=== PATIENT | female | born 1995 | race Two or more races ===

== ENCOUNTER 2025-03-24 18:46 | Emergency (ER) | payer OTHER ==
[~2025-03-24] VITALS: Ht 154.9 cm; Wt 83.9 kg
--- NOTE | 2025-03-24 18:56 | ECG ---
[facility] Test Date: 2025-03-24 Test Time: 18:55:01 Pat Name: PRIETO WILLS Department: ED Room: Gender: F Admitting Office Escort: BRISSA : 1995 Requested By: VIKKI DOAN Order Number: [id number] Reading MD: Brett Anthony Measurements Intervals [place] Rate: 60 P: 46 FL: 152 QRS: 57 QRSD: 90 T: 46 QT: 420 QTc: 420 Interpretive Statements Sinus arrhythmia Baseline wander in lead(s) V2 Electronically Signed On 03-27-2025 19:22:56 PST by Brett Anthoyn Please click the below link to view image of tracing.
[2025-03-24 19:12] LABS: Hematocrit 39.4 % (36.0-46.0); Hemoglobin 13.8 g/dL (12.2-16.2); Mean Corpuscular Hemoglobin 28.6 pg (28.0-32.0); Mean Corpuscular Volume 81.9 fL (80.0-100.0); Nucleated Red Blood Cells % 0.0 %
[2025-03-24 19:30] LABS: Chloride 105 mmol/L (98-107); Sodium 143 mmol/L (136-145)
[2025-03-24 19:31] LABS: Anion Gap 12 (5-15); Calcium 9.4 mg/dL (8.7-10.4); Carbon Dioxide 26 mmol/L (20-31)
[2025-03-24 19:36] LABS: BUN/Creatinine Ratio 13.8 (10.0-20.0); Potassium 3.3 mmol/L (3.5-5.1)
--- NOTE | 2025-03-24 20:18 | ED.PDOC ---
GI ASSESSMENT HPI Comments HPI: This is a 29 year old female presenting to the ED with chief complaint of abdominal pain. Patient reports that she has been experiencing epigastric abdominal pain with associated nausea and vomiting since 11am this morning. Patient relays that her pain radiates into her back. Patient states she is currently 30 days post and she has a family history of gallstones. Patient denies any fever, chills, chest pain, SOB, dysuria, hematemesis, or diarrhea. Past Medical History: Denies Past Surgical History: Denies Social History: Denies smoking, ETOH, or drug use Medications: None Allergies: NKDA ELMA: EPIG PAIN X 1 DAY, RUQ, N/V, RAD TO BACK. 30 DAYS HPI: Poor Historian. REVIEW OF SYSTEMS: CONSTITUTIONAL: Denies acute: fever, diaphoresis, chills, generalized weakness. HEAD: Denies acute: headache, photophobia Eyes: Denies acute: Double vision, vision loss, eye pain, eye discharge. EARS: Denies acute: tinnitus, hearing loss, ear discharge, ear pain, THROAT: Denies acute: sore throat, swelling, difficulty swallowing , pain with sw allowing, change in voice. NECK: Denies acute: neck pain, neck swelling, stiff neck. HEART: Denies acute : chest pain, palpitations, LUNGS: Denies acute: SOB, wheezing, cough, hemoptysis ABDOMEN: Denies acute: diarrhea, melena , hematemesis, hematochezia SKIN: Denies acute: rash, redness, lesions, itchiness. EXTREMITIES: Denies acute: calf pain, numbness, tingling, weakness, denies pain in extremity. Denies acute: Low back pain. Neuro: Denies acute: focal neurological deficit, motor or sensory focal neurological deficit, tremors, seizure like activity, confusion, dizziness, change in mental status, loss of bowel or bladder function, cauda equina like symptoms. : Denies acute: dysuria, hematuria, flank pain, increase in urinary frequency. PSYCH: Denies acute: hallucination, suicidal ideation, homicidal ideation. FEMALE: Denies acute: abnormal vaginal bleeding, foul odor, unusual discharge. PHYSICAL EXAM: General: ----moderate----acute distress, awake and alert. Head: normocephalic, atraumatic. No raccoon's eyes, no orellana sign. Neck: supple, trachea is midline, no swelling. Throat: Normal phonation. Eyes:, no erythema, no purulent discharge, no proptosis, no icterus. Heart: regular rate, regular rhythm, no significant murmur appreciated. Lungs: no apparent respiratory distress, Able to speak in full sentences. No wheezing, no rhonchi, no crackles. No stridors Clear to auscultation bilaterally. Abdomen: Epigastric tender to palpation, non distended, soft, no guarding, no rebound, + bowel sounds. Neuro: Awake, Alert, oriented to name, self, situation, follows commands GCS=15. Speech is normal. Skin: no petechia, no purpura, no cyanosis, non-pale, not jaundice. Lower extremities: --no - Pitting edema no deformity, no focal swelling, no calf TTP. Makes eye contact. moves all four extremities. Face: no apparent facial droop. Ambulating in the ED independently. ED COURSE: DISCLAIMER: This medical document was created using an electronic medical record system with voice recognition software and computerized dictation system. Although this document has been carefully reviewed, there might still be some phonetic and typographical errors. Occasional wrong-word or "sound-alike" substitutions may have occurred due to the inherent limitations of voice recognition software. These areas are purely typographical due to imperfections of the software programs and do not reflect any compromise in the patient's medical care. Please read the chart carefully and recognize, using context, where these substitutions have occurred. Chief Complaint: Chest Pain Time Seen by MD: 20:16 Reviewed Notes: Medications, Allergies Allergies: Coded Allergies: NO KNOWN ALLERGIES (Unverified , 03/24/25) Information Source: Patient Mode of Arrival: Ambulatory EKG EKG : Pulse Rate (adult): 60 Cardiac Rhythm: NSR Comments Sinus arrhythmia Was a procedure done? Was a procedure done?: No GI differential Dx Differential Diagnosis: Other (DDX include Diverticulitis, colitis, gastroenteritis, acute abdomen, SBO, enteritis, constipation, volvulus, appendicitis, Gallbladder disease, choledocolithiasis, ascending cholangitis, pancreatitis, intraAbdominal mass/neoplasm, hepatitis, UTI, pylonephritis, kidney stone, aneurysm, dissection, Inflammatory bowel disease, gastroparesis, ischemic bowel,,,,,,Food poisoning, bacterial/parasitic/viral etiology, trauma, diabetes DKA,ovarian torsion, ovarian cyst/mass, tubo-ovarian abscess, , ectopic , PID, STD.) X-Ray, Labs, Meds, VS Vital Signs Date Time Temp Pulse Resp B/P (MAP) Pulse Ox O2 Delivery O2 Flow Rate FiO2 03/25/25 02:28 98.5 46 14 131/61 (84) 95 98.5 03/25/25 01:54 98.3 44 16 119/45 (69) 100 98.3 03/25/25 01:12 130/78 03/24/25 22:10 57 03/24/25 22:00 66 17 131/81 (98) 98 03/24/25 21:58 131/81 03/24/25 20:42 60 16 96 Room Air* 0 21 03/24/25 20:42 99.2 60 16 114/69 (84) 96 99.2 03/24/25 20:18 60 03/24/25 18:55 60 03/24/25 18:53 98.1 76 18 107/68 94 98.1 Lab Test 03/24/25 23:14 03/24/25 20:45 03/24/25 20:30 03/24/25 19:00 Range/Units Sodium Level 145 143 136-145 mmol/L Potassium Level 3.7 3.3 L 3.5-5.1 mmol/L Chloride Level 107 105 98-107 mmol/L Carbon Dioxide Level 25 26 20-31 mmol/L Anion Gap 13 12 5-15 Blood Urea Nitrogen 8 L 9 9-23 mg/dL Creatinine 0.59 0.65 0.550-1.02 mg/dL Glomerular Filtration Rate Calc 125 122 >90 mL/min BUN/Creatinine Ratio 13.6 13.8 10.0-20.0 Serum Glucose 159 H 129 H 74-106 mg/dL Calcium Level 8.6 L 9.4 8.7-10.4 mg/dL Total Bilirubin 1.6 H 0.2-1.0 mg/dL Aspartate Amino Transferase (AST) 53 H 13-40 U/L Alanine Aminotransferase (ALT) 33 7-40 U/L Alkaline Phosphatase 114 46-116 U/L Total Protein 6.6 5.7-8.2 g/dL Albumin 4.2 3.2-4.8 g/dL Urine Color Yellow Yellow Urine Clarity Turbid H Clear Urine pH 5.5 5.0-9.0 Urine Specific [place] 1.020 1.001-1.035 Urine Protein Trace H Negative Urine Ketones 4+ H Negative Urine Blood Trace H Negative /uL Urine Nitrite Negative Negative Urine Bilirubin 1+ H Negative Urine Urobilinogen 2 H Negative mg/dL Urine Leukocyte Esterase 3+ Negative /uL Urine RBC 6 0 - 4 /hpf Urine Microscopic WBC 54 H 0-5 /HPF Urine Squamous Epithelial Cells Few <5 /hpf Urine Bacteria Few H None Seen /hpf Urine Mucus Few None Seen Urine Glucose Normal Normal mg/dL Urine Test Negative Negative Troponin I High Sensitivity < 3 L < 3 L </=34 ng/L White Blood Count 13.5 H 4.4-10.8 10^3/uL Red Blood Count 4.81 4.0-5.20 10^6/uL Hemoglobin 13.8 12.2-16.2 g/dL Hematocrit 39.4 36.0-46.0 % Mean Corpuscular Volume 81.9 80.0-100.0 fL Mean Corpuscular Hemoglobin 28.6 28.0-32.0 pg Mean Corpuscular Hemoglobin Concent 34.9 32.0-36.0 g/dL Red Cell Distribution Width 13.8 11.8-14.3 % Platelet Count 379 140-450 10^3/uL Mean Platelet Volume 6.5 L 6.9-10.8 fL Neutrophils (%) (Auto) 87.6 H 37.0-80.0 % Lymphocytes (%) (Auto) 7.6 L 10.0-50.0 % Monocytes (%) (Auto) 4.3 0.0-12.0 % Eosinophils (%) (Auto) 0.2 0.0-7.0 % Basophils (%) (Auto) 0.3 0.0-2.0 % Neutrophils # (Auto) 11.8 H 1.6-8.6 10 ^3/uL Lymphocytes # (Auto) 1.0 0.4-5.4 10 ^3/uL Monocytes # (Auto) 0.6 0-1.3 10 ^3/uL Eosinophils # (Auto) 0 0-0.8 10 ^3/uL Basophils # (Auto) 0 0-0.2 10 ^3/uL Nucleated Red Blood Cells 0.0 % Lipase > 3500 H 12-53 U/L [address] [address] Ph: [phone] DIAGNOSTIC IMAGING Diagnostic Imaging Report : [id number] Signed PATIENT: PRIETO WILLSACCT: [id number] UNIT: [id number] : 1995 LOC: ER ROOM / BED: / AGE / SEX: 29 / F ADM STATUS: REG ER SERVICE 44 ORDERING PHYSICIAN: VIKKI DOAN DO PROCEDURE(s): ABDL - ABDOMEN LIMITED REASON: EPGI PAIN N/V ORDER NUMBER(s): [id number], ACCESSION NUMBER(s): [id number] Procedure: US ABDOMEN LIMITED Study Date and Requested Time: 03/24/2025 07:54 PM History: EPGI PAIN N/V Comparison: None Technique: Multiple high resolution bryant-scale images obtained of the right upper quadrant of the abdomen with color Doppler for evaluation of blood flow and vascularity as indicated. Findings: Liver normal in size, measuring 17 cm in length, with homogenous echotexture and normal contours. No evidence of focal hepatic lesions. Distended common bile duct measuring up to 0.9 cm. Gallbladder is distended with multiple gallstones. No evidence of Gallbladder Wall thickening of pericholecystic free fluid. Negative sonographic gamez's sign. Pancreas is is unremarkable. Right kidney measures 11.3 cm in length, with normal contours, echotexture, and cortical thickness. No evidence of hydronephrosis, calculi, cystic or solid renal lesions. Partially visualized inferior vena cava unremarkable. Impression: Cholelithiasis with no sonographic evidence of acute cholecystitis. Distended common bile duct up to 0.9 cm. MRCP is recommended for further evaluation . ATED BY: MORENA SARABIA DO DICTATED DATE/TIME: 03/24/252037 SIGNED BY: MORENA SARABIA DO SIGNED DATE/TIME: 03/24/252037 CC: Time of 1ST Reevaluation: 21:15 Reevaluation 1ST: Unchanged Time of 2ND Reevaluation: 23:04 (The case was discussed with the [facility] admitting team (HPI, physical exam, labs and diagnostic tests that were avail able at the time of disposition, ED course, treatment plan) on the phone. They agreed to transfer the patient to their service by ALS for further evaluation and treatment. Dr. Amador--. Authorization number is--[id number]) Patient Education/Counseling: Diagnosis, Treatment Family Education/Counseling: No Family Present Comments MDM: patient presented with the above HPI.-abdominal pain-----workup was initiated. patient was found with the above mentioned diagnosis. the following medications were ordered: please refer to order lists of meds and tests obtained by myself Dr. Doan. Patient ED course and VS have been stabilized. Patient has been reassessed in the ED and remained in a stable condition. Pertinent incidental findings were discussed with the patient and/or family. Patient/family voices understanding and is agreeable with plan. Patient has been observed in the ED adequate length of time to insure improvement/stability. Escalation of care considered: Consideration of escalation to observation or admission Patient was given GI cocktail, fluids, antibiotics, antiemetics, pain medications. Patient was transferred to [facility] per insurance requirement to the medicine team for further evaluation and treatment of their presentation. All the reports of any imaging studies that were ordered by myself were reviewed by myself. Departure 1 Departure Time of Disposition: 21:15 Impression: Primary Impression: Acute pancreatitis Additional Impressions: Cholelithiasis UTI (urinary tract infection) Disposition: 02 SHORT TERM HOSPITAL Admit to: Tele Condition: Guarded Discharged With: Self Critical Care Note Critical Care Time?: Yes (55 min-critical care time only) Critical care comment: Due to a high probability of clinically significant, life threatening deterioration, the patient required my highest level of preparedness to intervene emergently and I personally spent this critical care time directly and personally managing the patient. This critical care time included obtaining a history; examining the patient; pulse oximetry; ordering and review of studies; arranging urgent treatment with development of a management plan; evaluation of patient's response to treatment; frequent reassessment; and, discussions with other providers. This critical care time was performed to assess and manage the high probability of imminent, life-threatening deterioration that could result in multi-organ failure. It was exclusive of separately billable procedures and treating other patients and teaching time. Please see my other sections and the rest of the note for further information on patient assessment and treatment. I personally scribed for VIKKI DOAN DO ([email or web address]) on 03/24/25 at 20:18. Electronically submitted by Jese Hargrove ([email or web address]). I personally scribed for VIKKI DOAN DO ([email or web address]) on 03/24/25 at 21:35. Electronically submitted by Jese Hargrove ([email or web address]). VIKKI DOAN DO Mar 24, 2025 20:18
[2025-03-24] MEDS: PANTOPRAZOLE 40 MG TAB PO ONE (20:32)
[2025-03-24] MEDS: SODIUM CHLORIDE 0.9% 1,000 ML IV ONE ×2 (20:32→21:58)
[2025-03-24] MEDS: SUCRALFATE 1 GM TAB PO ONE (20:32)
[2025-03-24] MEDS: LIDOCAINE VISCOUS 2% 15ML UD PO ONE (20:32)
[2025-03-24] MEDS: ONDANSETRON HCL 4 MG/2 ML VIAL IV ONE (20:32)
[2025-03-24 20:38] LABS: Blood Urea Nitrogen 9 mg/dL (9-23); Glucose 129 mg/dL (74-106)
--- NOTE | 2025-03-24 20:41 | DVH ---
Procedure: US ABDOMEN LIMITED Study Date and Requested Time: 03/24/2025 07:54 PM History: EPGI PAIN N/V Comparison: None Technique: Multiple high resolution bryant-scale images obtained of the right upper quadrant of the abdomen with color Doppler for evaluation of blood flow and vascularity as indicated. Findings: Liver normal in size, measuring 17 cm in length, with homogenous echotexture and normal contours. No evidence of focal hepatic lesions. Distended common bile duct measuring up to 0.9 cm. Gallbladder is distended with multiple gallstones. No evidence of Gallbladder Wall thickening of pericholecystic free fluid. Negative sonographic gamez's sign. Pancreas is is unremarkable. Right kidney measures 11.3 cm in length, with normal contours, echotexture, and cortical thickness. No evidence of hydronephrosis, calculi, cystic or solid renal lesions. Partially visualized inferior vena cava unremarkable. Impression: Cholelithiasis with no sonographic evidence of acute cholecystitis. Distended common bile duct up to 0.9 cm. MRCP is recommended for further evaluation .
[2025-03-24 20:42] VITALS: PULSE 60; RESP 16; O2SAT 96
[2025-03-24] MEDS: fentaNYL CITRATE 100 MCG/2 ML VL IV ONE (21:58)
[2025-03-24] MEDS: PIPERACILLIN-TAZOB 3.375GM 100 ML IV ONE (21:59)
--- NOTE | 2025-03-24 22:12 | ECG ---
[facility] Test Date: 2025-03-24 Test Time: 22:10:25 Pat Name: PRIETO WILLS Department: ED Room: Gender: F Network Specialist: YE : 1995 Requested By: VIKKI DOAN Order Number: [id number] Reading MD: Brett Anthony Measurements Intervals [place] Rate: 57 P: 63 FL: 159 QRS: 69 QRSD: 77 T: 53 QT: 419 QTc: 408 Interpretive Statements Sinus rhythm Electronically Signed On 03-27-2025 19:24:42 PST by Brett Anthony Please click the below link to view image of tracing.
--- NOTE | 2025-03-24 22:45 | ECG ---
[facility] Test Date: 2025-03-24 Test Time: 20:25:20 Pat Name: PRIETO WILLS Department: ED Room: Gender: F Lay Out Helper: YE : 1995 Requested By: VIKKI DOAN Order Number: [id number] Reading MD: Brett Anthony Measurements Intervals [place] Rate: 59 P: 67 ID: 150 QRS: 74 QRSD: 88 T: 64 QT: 421 QTc: 417 Interpretive Statements Sinus rhythm Electronically Signed On 03-27-2025 19:23:46 PST by Brett Anthony Please click the below link to view image of tracing.
--- NOTE | 2025-03-24 23:02 | DVH ---
CHEST RADIOGRAPH Indication: CP Technique: Single frontal view of the chest was obtained. Comparison: None Findings: No focal consolidation. No significant pleural effusion. No pneumothorax. Nonenlarged cardiomediastinal silhouette. IMPRESSION: No acute pulmonary process.
--- NOTE | 2025-03-24 23:26 | DVH ---
Exam: CT CT AB PEL WO CON-NO ORAL OR IV History: EPIG PAIN Comparison Study: None Technique: Multidetector spiral CT of the chest, abdomen and pelvis was performed from lower neck to pubic symphysis Axial, coronal and sagittal multiplanar reformats were performed by the technologist on a separate workstation. Radiation Dose : 1. Chest/Abdomen/Pelvis: CTDIvol 12.25 mGy, DLP 690.12 mGy*cm. Findings: Lower neck: Normal thyroid. Lungs: No focal consolidation, pleural effusion or pneumothorax. Heart/Vascular Structures: Normal heart size. No pericardial effusion. Lymph Nodes: No adenopathy Pleura: No pleural effusion or significant pneumothorax. Liver: The liver is normal in size. No focal lesions. Normal hepatic vascular enhancement. Gallbladder and Biliary Tree: Moderate gallbladder distention and cholesterol gallstones. Spleen: Unremarkable Pancreas: Diffuse peripancreatic inflammatory change and free fluid consistent with sequelae Of Acute pancreatitis. No definite evidence of pseudocyst, abscess or obvious parenchymal necrosis. Adrenal Glands: Unremarkable Kidneys: Kidneys demonstrate normal symmetric enhancement without focal lesions, calculi or hydronephrosis. Bladder: Unremarkable Bowel: Small sliding-type hiatal hernia. The stomach is grossly normal in appearance. Small bowel and colon are normal in caliber and distribution. The appendix is normal. Lymphadenopathy: No mesenteric, retroperitoneal or periportal lymphadenopathy. Abdominal Wall and Mesentery: Unremarkable. Vasculature: The visualized abdominal aorta is normal in size and caliber. Abdominal and pelvic vessels demonstrate normal enhancement. Pelvic Organs: Unremarkable Musculoskeletal: No aggressive focal bony lesions, acute fractures or dislocation. IMPRESSION: 1. Findings consistent with acute pancreatitis. No definite evidence of pseudocyst, abscess or obvious parenchymal necrosis. 2. Moderate gallbladder distention and cholesterol gallstones.
[2025-03-25 00:14] LABS: Alanine Aminotransferase 33 U/L (7-40); Albumin 4.2 g/dL (3.2-4.8); Alkaline Phosphatase 114 U/L (46-116); Anion Gap 13 (5-15); BUN/Creatinine Ratio 13.6 (10.0-20.0); Carbon Dioxide 25 mmol/L (20-31); Chloride 107 mmol/L (98-107); Potassium 3.7 mmol/L (3.5-5.1); Sodium 145 mmol/L (136-145); Total Protein 6.6 g/dL (5.7-8.2)
[2025-03-25 00:15] LABS: Blood Urea Nitrogen 8 mg/dL (9-23); Glucose 159 mg/dL (74-106)
[2025-03-25 00:16] LABS: Bilirubin, Total 1.6 mg/dL (0.2-1.0); Calcium 8.6 mg/dL (8.7-10.4)
[2025-03-25] MEDS: fentaNYL CITRATE 100 MCG/2 ML VL IV ONE (01:12)
[2025-03-25 02:28] VITALS: BP 131/61; PULSE 46; RESP 14; TEMP 98.5; O2SAT 95
[2025-03-25 14:37] LABS: Urine Protein, UAD TRACE (Negative)
== END 2025-03-25 02:22 | disposition short-term general hospital (02) ==
LOC: ER 18:46
DX: K85.90 Acute pancreatitis without necrosis or infection, unspecified (principal); K80.20 Calculus of gallbladder without cholecystitis without obstruction; N39.0 Urinary tract infection, site not specified
CPT/HCPCS: 36415; 71045; 74176; 76705; 80048; 80053; 81001; 81025; 83690; 84484; 85025; 93005; 96361; 96365; 96366; 96375; 96376; 99291; J2405; J2543; J3010; J7030